=== PATIENT | male | born 2000 | race Two or more races ===

== ENCOUNTER 2024-10-19 17:42 | Inpatient (IN) | payer OTHER ==
[~2024-10-19] VITALS: Ht 162.6 cm; Wt 64.0 kg
[2024-10-19 18:44] LABS: BASOPHILS % (AUTO) 0.5 % (0.0-2.0); EOSINOPHILS % (AUTO) 1.5 % (1.0-6.0); HEMATOCRIT 47.5 % (41-53); HEMOGLOBIN 15.7 g/dL (13.5-17.5); LYMPHOCYTES # (AUTO) 1.7 K/uL (1.0-4.8); LYMPHOCYTES % (AUTO) 25.3 % (22.0-44.0); MEAN CORPUSCULAR HEMOGLOBIN 30.9 pg (26.0-34.0); MEAN CORPUSCULAR VOLUME 94 fL (80-100); MONOCYTES # (AUTO) 0.7 K/uL (0.1-1.0); MONOCYTES % (AUTO) 10.4 % (2.0-9.0); NEUTROPHILS # (AUTO) 4.1 K/uL (1.8-7.7); NEUTROPHILS % (AUTO) 62.3 % (40.0-70.0); PLATELET COUNT (AUTO) 223 K/uL (150-450); RED BLOOD CELL COUNT(AUTO) 5.08 MIL/uL (4.50-5.90); RED CELL DISTRIBUTION WIDTH 13.3 % (11.5-14.5); WHITE BLOOD COUNT (AUTO) 6.5 K/uL (4.5-11.0)
[2024-10-19 18:56] LABS: ANION GAP 7 mmol/L (8-16); B-TYPE NATRIURETIC PEPTIDE 12 pg/mL (0-100); CARBON DIOXIDE 29 mmol/L (22-29); CHLORIDE 104 mmol/L (98-107); CREATININE 1.09 mg/dL (0.60-1.30); GLOMERULAR FILTR. RATE CALC > 60 mL/min (>60); GLUCOSE,RANDOM 94 mg/dL (70-110); SODIUM SERUM 140 mmol/L (136-145); UREA NITROGEN, BLOOD 10 mg/dL (7-18)
[2024-10-19 19:02] LABS: ALANINE AMINOTRANSFERASE 25 U/L (12-78); ALBUMIN 3.9 g/dL (3.4-5.0); ALKALINE PHOSPHATASE 88 U/L (46-116); ASPARTATE AMINOTRANSFERASE 21 U/L (15-37); BILIRUBIN,TOTAL 0.4 mg/dL (0.1-1.0); CREATINE KINASE, TOTAL ONLY 172 U/L (39-308); TOTAL PROTEIN, SERUM 7.9 g/dL (6.4-8.2)
[2024-10-19] MEDS ORDERED: ACETAMINOPHEN 325 MG TABLET PO PRN (20:30)
[2024-10-19] MEDS ORDERED: ONDANSETRON HCL 4 MG/2 ML VIAL IVP PRN (20:30)
[2024-10-19 20:47] LABS: THYROID STIMULATING HORMONE 0.99 uIU/mL (0.36-3.74)
[2024-10-19] MEDS: DOCUSATE SODIUM 100 MG CAPSULE PO SCH (21:00)
[2024-10-19 21:10] LABS: COVID AG,FIA SOURCE NASAL SWAB
[2024-10-19 21:34] LABS: INFLUENZA TYPE A NEGATIVE FOR TYPE A (NEGATIVE); INFLUENZA TYPE B NEGATIVE FOR TYPE B (NEGATIVE); SARS-COV2 (COVID) ANTIGEN,FIA Negative (Negative)
[2024-10-19 22:50] VITALS: BP 120/71; PULSE 48; RESP 18; TEMP 98.5; O2SAT 100
[2024-10-20] VITALS (7 sets, daily range): BP systolic 92–108; BP diastolic 55–67; PULSE 38–54; RESP 18; TEMP 98.4–99.1; O2SAT 97–100
[2024-10-20] MEDS: HEPARIN SODIUM,PORCINE 5,000 UNITS/ML VIAL SQ SCH
[2024-10-21 04:14] VITALS: BP 103/68; PULSE 48; RESP 18; TEMP 97.9; O2SAT 98
[2024-10-21 08:43] VITALS: BP 100/57; PULSE 46; RESP 18; TEMP 98.2; O2SAT 98
[2024-10-21 16:00] VITALS: BP 129/85; PULSE 41; RESP 19; TEMP 98.6; O2SAT 100
[2024-10-21 19:19] VITALS: BP 106/57; PULSE 50; RESP 18; TEMP 98.6; O2SAT 98
[2024-10-22 04:31] VITALS: BP 110/60; PULSE 45; RESP 18; TEMP 98; O2SAT 100
[2024-10-22 11:28] LABS: MTB PCR w/Rif. Resistance-SPUT NOT DETECTED (Not Detectd)
[2024-10-22 15:13] LABS: MTB PCR w/Rif. Resistance-SPUT NOT DETECTED (Not Detectd)
[2024-10-22 20:13] VITALS: BP 104/60; PULSE 48; RESP 18; TEMP 97.7; O2SAT 100
[2024-10-23 04:31] VITALS: BP 96/58; PULSE 42; RESP 16; TEMP 97.6; O2SAT 100
[2024-10-23 20:42] VITALS: BP 101/52; PULSE 42; RESP 18; TEMP 97.7; O2SAT 98
[2024-10-24 01:06] LABS: QUANTIFERON+, Nil Value 0.26 IU/mL; QUANTIFERON+,Mitogen Value >10.00 IU/mL; QUANTIFERON+,TB1 Antigen Value 0.39 IU/mL; QUANTIFERON+,TB2 Antigen Value 0.52 IU/mL; QUANTIFERON, TB GOLD PLUS Negative (Negative)
[2024-10-24 05:35] VITALS: BP 93/54; PULSE 44; RESP 18; TEMP 97.7; O2SAT 99
[2024-10-24 09:05] VITALS: BP 105/50; PULSE 46; RESP 18; TEMP 98.4; O2SAT 100
[2024-10-24 13:45] LABS: FREE T4 (FREE THYROXINE) 0.92 ng/dL (0.76-1.46); THYROID STIMULATING HORMONE 1.92 uIU/mL (0.36-3.74)
[2024-10-24 19:53] VITALS: BP 95/53; PULSE 45; RESP 17; TEMP 98.4; O2SAT 100
[2024-10-25 04:49] VITALS: BP 90/52; PULSE 42; RESP 16; TEMP 97.5; O2SAT 98
[2024-10-25] MEDS ORDERED: MethylPREDNISolone SOD SUCC 125 MG/2 ML VIAL ONE (13:54)
[2024-10-25 16:43] LABS: BASOPHILS % (AUTO) 0.5 % (0.0-2.0); EOSINOPHILS % (AUTO) 1.9 % (1.0-6.0); HEMATOCRIT 47.4 % (41-53); HEMOGLOBIN 15.8 g/dL (13.5-17.5); LYMPHOCYTES # (AUTO) 1.8 K/uL (1.0-4.8); LYMPHOCYTES % (AUTO) 35.8 % (22.0-44.0); MEAN CORPUSCULAR HEMOGLOBIN 30.9 pg (26.0-34.0); MEAN CORPUSCULAR HGB CONC 33.3 G/dL (31.0-37.0); MEAN CORPUSCULAR VOLUME 93 fL (80-100); MONOCYTES # (AUTO) 0.4 K/uL (0.1-1.0); MONOCYTES % (AUTO) 7.9 % (2.0-9.0); NEUTROPHILS # (AUTO) 2.8 K/uL (1.8-7.7); NEUTROPHILS % (AUTO) 53.9 % (40.0-70.0); PLATELET COUNT (AUTO) 246 K/uL (150-450); RED CELL DISTRIBUTION WIDTH 13.1 % (11.5-14.5); WHITE BLOOD COUNT (AUTO) 5.1 K/uL (4.5-11.0)
[2024-10-25 16:52] LABS: ANION GAP 7 mmol/L (8-16); CALCIUM, TOTAL 8.9 mg/dL (8.8-10.5); CARBON DIOXIDE 30 mmol/L (22-29); CHLORIDE 103 mmol/L (98-107); CREATININE 1.29 mg/dL (0.60-1.30); GLOMERULAR FILTR. RATE CALC > 60 mL/min (>60); GLUCOSE,RANDOM 87 mg/dL (70-110); POTASSIUM 4.5 mmol/L (3.5-5.1); SODIUM SERUM 140 mmol/L (136-145); UREA NITROGEN, BLOOD 19 mg/dL (7-18)
[2024-10-25 16:59] LABS: ALANINE AMINOTRANSFERASE 32 U/L (12-78); ALBUMIN 3.5 g/dL (3.4-5.0); ALKALINE PHOSPHATASE 80 U/L (46-116); ASPARTATE AMINOTRANSFERASE 23 U/L (15-37); BILIRUBIN,TOTAL 0.2 mg/dL (0.1-1.0); TOTAL PROTEIN, SERUM 7.4 g/dL (6.4-8.2)
[2024-10-25] MEDS: LEVOFLOXACIN 750 MG TABLET PO ONE (18:19)
[2024-10-25 19:17] VITALS: BP 102/51; PULSE 54; RESP 18; TEMP 98.3; O2SAT 99
[2024-10-26 04:29] VITALS: BP 97/64; PULSE 52; RESP 18; TEMP 97.7; O2SAT 99
[2024-10-26 07:58] VITALS: BP 96/57; PULSE 45; RESP 18; TEMP 98; O2SAT 100
[2024-10-26] MEDS: LEVOFLOXACIN 750 MG TABLET PO SCH (08:54)
[2024-10-26 17:10] VITALS: BP 98/45; PULSE 49; RESP 18; TEMP 98.1; O2SAT 100
[2024-10-26 18:00] VITALS: BP 98/54; PULSE 47; RESP 18; O2SAT 100
[2024-10-26 20:25] VITALS: BP 98/53; PULSE 54; RESP 18; TEMP 98.4; O2SAT 98
[2024-10-26] MEDS: AMOX TR/POT CLAV 875 MG/125 MG TABLET PO SCH (20:47)
[2024-10-26] MEDS ORDERED: ZOLPIDEM TARTRATE 5 MG TABLET PO SCH (22:00)
[2024-10-27 07:38] VITALS: BP 99/58; PULSE 40; RESP 18; TEMP 97.9; O2SAT 100
[2024-10-27 20:11] VITALS: BP 104/59; PULSE 60; RESP 20; TEMP 98.5; O2SAT 100
[2024-10-27] MEDS: ZOLPIDEM TARTRATE 5 MG TABLET PO PRN (21:00)
[2024-10-28 05:12] VITALS: BP 100/61; PULSE 58; RESP 18; TEMP 97.8; O2SAT 100
[2024-10-28 07:53] VITALS: BP 101/62; PULSE 40; RESP 18; TEMP 97.6; O2SAT 99
[2024-10-28 19:50] VITALS: BP 121/69; PULSE 75; RESP 18; TEMP 98.2; O2SAT 98
[2024-10-29 04:36] VITALS: BP 102/67; PULSE 69; RESP 18; TEMP 97.7; O2SAT 98
[2024-10-29 08:52] VITALS: BP 107/63; PULSE 46; RESP 19; TEMP 97.7; O2SAT 100
[2024-10-29 19:33] VITALS: BP 108/68; PULSE 52; RESP 18; TEMP 97.9; O2SAT 100
[2024-10-30 04:50] VITALS: BP 109/69; PULSE 59; RESP 18; TEMP 97.8; O2SAT 99
[2024-10-30 09:15] VITALS: BP 107/72; PULSE 45; RESP 17; TEMP 97.8; O2SAT 99
[2024-10-30 19:20] VITALS: BP 99/51; PULSE 52; RESP 18; TEMP 97.7; O2SAT 96
[2024-10-31 05:05] VITALS: BP 99/52; PULSE 44; RESP 19; TEMP 97.5; O2SAT 97
[2024-10-31 08:00] VITALS: BP 99/54; PULSE 46; RESP 18; TEMP 98.2; O2SAT 98
[2024-10-31 08:34] VITALS: BP 100/57; PULSE 40; RESP 18; TEMP 98.5; O2SAT 99
[2024-10-31 12:00] VITALS: BP 99/54; PULSE 46; RESP 18; TEMP 98.2; O2SAT 98
[2024-10-31 16:00] VITALS: BP 97/68; PULSE 46; RESP 18; TEMP 98.2; O2SAT 98
[2024-11-01 04:17] VITALS: BP 105/53; PULSE 60; RESP 16; TEMP 98.6; O2SAT 98
[2024-11-01 08:00] VITALS: BP 99/64; PULSE 47; RESP 18; TEMP 98.5; O2SAT 99
[2024-11-01 19:43] VITALS: BP 105/68; PULSE 57; RESP 18; TEMP 98.2; O2SAT 98
[2024-11-02 04:38] VITALS: BP 104/63; PULSE 48; RESP 18; TEMP 97.6; O2SAT 99
[2024-11-02 09:08] VITALS: BP 102/55; PULSE 45; RESP 18; TEMP 98.5; O2SAT 100
[2024-11-02 15:06] LABS: HIV 1-2 SCREEN 4TH GEN W/RFLX Preliminary Reactive (Non Reactive); HIV INTERPRETATION Negative; HIV-1 ANTIBODY(MULTISPOT) Non Reactive (Non Reactive); HIV-2 ANTIBODY(MULTISPOT) Non Reactive (Non Reactive)
[2024-11-02 19:25] VITALS: BP 99/59; PULSE 50; RESP 18; TEMP 98.3; O2SAT 100
[2024-11-03 04:08] VITALS: BP 95/57; PULSE 48; RESP 18; TEMP 97.5; O2SAT 97
[2024-11-03 07:18] VITALS: BP 97/69; PULSE 48; RESP 19; TEMP 97.8; O2SAT 99
[2024-11-03 16:48] VITALS: BP 100/51; PULSE 42; RESP 18; TEMP 97.7; O2SAT 100
[2024-11-03 19:27] VITALS: BP 102/56; PULSE 60; RESP 18; TEMP 98.4; O2SAT 100
[2024-11-04 05:05] VITALS: BP 96/56; PULSE 56; RESP 18; TEMP 97.4; O2SAT 99
[2024-11-04 08:04] VITALS: BP 100/57; PULSE 55; RESP 19; TEMP 97.7; O2SAT 99
[2024-11-04 16:04] LABS: ALBUMIN 3.6 g/dL (3.4-5.0); BILIRUBIN,DIRECT 0.1 mg/dL (0.00-0.20); BILIRUBIN,TOTAL 0.3 mg/dL (0.1-1.0); TOTAL PROTEIN, SERUM 7.2 g/dL (6.4-8.2)
[2024-11-04] MEDS: PYRAZINAMIDE 500 MG TABLET PO SCH (16:27)
[2024-11-04] MEDS: ETHAMBUTOL HCL 400 MG TABLET PO SCH (16:28)
[2024-11-04] MEDS: RIFAMPIN 300 MG CAPSULE PO SCH (16:28)
[2024-11-04] MEDS: ISONIAZID 300 MG TABLET PO SCH (16:28)
[2024-11-04] MEDS: PYRIDOXINE HCL 50 MG TABLET PO SCH (16:28)
[2024-11-04 19:31] VITALS: BP 96/56; PULSE 63; RESP 19; TEMP 98.5; O2SAT 98
[2024-11-05 04:08] VITALS: BP 96/63; PULSE 41; RESP 19; TEMP 97.5; O2SAT 97
[2024-11-05 07:54] VITALS: BP 105/70; PULSE 58; RESP 18; TEMP 98; O2SAT 98
[2024-11-05] MEDS ORDERED: OLAN5TAB52 PO (10:58)
[2024-11-05] MEDS ORDERED: CITA-144 PO (10:58)
[2024-11-05 20:29] VITALS: BP 113/57; PULSE 60; RESP 18; TEMP 98.4; O2SAT 98
[2024-11-06 04:46] VITALS: BP 99/50; PULSE 55; RESP 18; TEMP 97.7; O2SAT 99
[2024-11-06 07:28] VITALS: BP 98/53; PULSE 57; RESP 18; TEMP 98; O2SAT 100
[2024-11-06 20:00] VITALS: BP 94/56; PULSE 52; RESP 18; TEMP 97.4; O2SAT 99
[2024-11-07 04:06] VITALS: BP 99/64; PULSE 60; RESP 18; TEMP 97.7; O2SAT 99
[2024-11-07 07:56] LABS: ALANINE AMINOTRANSFERASE 42 U/L (12-78); ALBUMIN 3.5 g/dL (3.4-5.0); ALKALINE PHOSPHATASE 72 U/L (46-116); ANION GAP 10 mmol/L (8-16); ASPARTATE AMINOTRANSFERASE 26 U/L (15-37); BILIRUBIN,TOTAL 0.5 mg/dL (0.1-1.0); CALCIUM, TOTAL 8.6 mg/dL (8.8-10.5); CARBON DIOXIDE 25 mmol/L (22-29); CHLORIDE 104 mmol/L (98-107); CREATININE 0.94 mg/dL (0.60-1.30); GLOMERULAR FILTR. RATE CALC > 60 mL/min (>60); GLUCOSE,RANDOM 76 mg/dL (70-110); POTASSIUM 3.7 mmol/L (3.5-5.1); SODIUM SERUM 139 mmol/L (136-145); UREA NITROGEN, BLOOD 12 mg/dL (7-18)
[2024-11-07 08:35] VITALS: BP 115/66; PULSE 62; RESP 18; TEMP 97.5; O2SAT 95
[2024-11-07] MEDS: ALPRAZolam 1 MG TABLET PO PRN (13:38)
[2024-11-07 19:15] VITALS: BP 103/68; PULSE 60; RESP 18; TEMP 98.2; O2SAT 99
[2024-11-08 04:01] VITALS: BP 102/53; PULSE 60; RESP 18; TEMP 98.1; O2SAT 99
[2024-11-08 08:24] VITALS: BP 101/69; PULSE 66; RESP 18; TEMP 97.5; O2SAT 100
[2024-11-08 19:21] VITALS: BP 107/59; PULSE 59; RESP 18; TEMP 97.5; O2SAT 97
[2024-11-09 05:11] VITALS: BP 98/75; PULSE 68; RESP 18; TEMP 97.5; O2SAT 98
[2024-11-09 08:00] VITALS: BP 100/67; PULSE 77; RESP 18; TEMP 97.6; O2SAT 97
[2024-11-09 11:58] LABS: ALANINE AMINOTRANSFERASE 30 U/L (12-78); ALBUMIN 3.5 g/dL (3.4-5.0); ALKALINE PHOSPHATASE 73 U/L (46-116); ANION GAP 8 mmol/L (8-16); ASPARTATE AMINOTRANSFERASE 17 U/L (15-37); BILIRUBIN,TOTAL 0.6 mg/dL (0.1-1.0); CALCIUM, TOTAL 8.6 mg/dL (8.8-10.5); CARBON DIOXIDE 29 mmol/L (22-29); CHLORIDE 104 mmol/L (98-107); CREATININE 0.78 mg/dL (0.60-1.30); GLOMERULAR FILTR. RATE CALC > 60 mL/min (>60); GLUCOSE,RANDOM 102 mg/dL (70-110); POTASSIUM 3.9 mmol/L (3.5-5.1); SODIUM SERUM 141 mmol/L (136-145); UREA NITROGEN, BLOOD 13 mg/dL (7-18)
[2024-11-09 19:31] VITALS: BP 104/69; PULSE 70; RESP 18; TEMP 98.2; O2SAT 99
[2024-11-10 05:49] VITALS: BP 93/57; PULSE 67; RESP 18; TEMP 97.8; O2SAT 100
[2024-11-10 07:30] VITALS: BP 105/54; PULSE 80; RESP 18; TEMP 97.7; O2SAT 97
[2024-11-10 16:13] VITALS: BP 101/74; PULSE 65; RESP 18; TEMP 98.1; O2SAT 98
[2024-11-10 19:20] VITALS: BP 100/60; PULSE 60; RESP 18; TEMP 98; O2SAT 99
[2024-11-11 04:15] VITALS: BP 106/69; PULSE 59; RESP 18; TEMP 97.7; O2SAT 98
[2024-11-11 07:35] VITALS: BP 118/68; PULSE 54; RESP 18; TEMP 97.5; O2SAT 98
[2024-11-11 20:22] VITALS: BP 97/52; PULSE 51; RESP 18; TEMP 97.5; O2SAT 100
[2024-11-12 05:08] VITALS: BP 98/68; PULSE 52; RESP 18; TEMP 97.6; O2SAT 98
[2024-11-12 08:00] VITALS: BP 100/66; PULSE 56; RESP 15; TEMP 97.8; O2SAT 98
[2024-11-12 19:36] VITALS: BP 104/67; PULSE 58; RESP 18; TEMP 98.2; O2SAT 99
[2024-11-13 04:48] VITALS: BP 108/57; PULSE 68; RESP 18; TEMP 97.5; O2SAT 96
[2024-11-13 19:18] VITALS: BP 93/56; PULSE 55; RESP 18; TEMP 98; O2SAT 98
[2024-11-14 04:22] VITALS: BP 85/48; PULSE 45; RESP 18; TEMP 97.5; O2SAT 99
[2024-11-14 07:30] VITALS: BP 122/70; PULSE 44; RESP 19; TEMP 97.5; O2SAT 98
[2024-11-14 19:57] VITALS: BP 111/65; PULSE 64; RESP 18; TEMP 98.2; O2SAT 97
[2024-11-15 04:58] VITALS: BP 119/61; PULSE 61; RESP 18; TEMP 98; O2SAT 98
[2024-11-15 08:06] VITALS: BP 101/55; PULSE 68; RESP 18; TEMP 98.2; O2SAT 98
[2024-11-15 20:31] VITALS: BP 103/72; PULSE 56; RESP 18; TEMP 98.2; O2SAT 97
[2024-11-16 05:41] VITALS: BP 101/51; PULSE 61; RESP 18; TEMP 97.8; O2SAT 96
[2024-11-16 15:51] VITALS: BP 105/67; PULSE 57; RESP 18; TEMP 98.3; O2SAT 100
[2024-11-16 21:14] VITALS: BP 122/71; PULSE 62; RESP 18; TEMP 97.9; O2SAT 100
[2024-11-17 04:55] VITALS: BP 103/61; PULSE 46; RESP 18; TEMP 98; O2SAT 98
[2024-11-17 08:04] VITALS: BP 105/71; PULSE 61; RESP 18; TEMP 97.9; O2SAT 100
[2024-11-17 16:36] VITALS: BP 101/46; PULSE 54; RESP 18; TEMP 98.5; O2SAT 99
[2024-11-17 19:25] VITALS: BP 114/71; PULSE 58; RESP 18; TEMP 97.8; O2SAT 98
[2024-11-18 04:30] VITALS: BP 109/74; PULSE 64; RESP 18; TEMP 98; O2SAT 98
[2024-11-18 08:11] VITALS: BP 100/54; PULSE 60; RESP 18; TEMP 98.1; O2SAT 98
[2024-11-18 11:35] LABS: BASOPHILS % (AUTO) 1.2 % (0.0-2.0); EOSINOPHILS % (AUTO) 3.9 % (1.0-6.0); HEMATOCRIT 44.3 % (41-53); HEMOGLOBIN 15.4 g/dL (13.5-17.5); LYMPHOCYTES # (AUTO) 1.6 K/uL (1.0-4.8); LYMPHOCYTES % (AUTO) 34.9 % (22.0-44.0); MEAN CORPUSCULAR HEMOGLOBIN 31.3 pg (26.0-34.0); MEAN CORPUSCULAR HGB CONC 34.7 G/dL (31.0-37.0); MEAN CORPUSCULAR VOLUME 90 fL (80-100); MONOCYTES # (AUTO) 0.6 K/uL (0.1-1.0); MONOCYTES % (AUTO) 11.9 % (2.0-9.0); NEUTROPHILS # (AUTO) 2.2 K/uL (1.8-7.7); NEUTROPHILS % (AUTO) 48.1 % (40.0-70.0); PLATELET COUNT (AUTO) 207 K/uL (150-450); RED BLOOD CELL COUNT(AUTO) 4.91 MIL/uL (4.50-5.90); RED CELL DISTRIBUTION WIDTH 12.9 % (11.5-14.5); WHITE BLOOD COUNT (AUTO) 4.6 K/uL (4.5-11.0)
[2024-11-18 11:52] LABS: ALANINE AMINOTRANSFERASE 26 U/L (12-78); ALBUMIN 3.6 g/dL (3.4-5.0); ALKALINE PHOSPHATASE 66 U/L (46-116); ANION GAP 6 mmol/L (8-16); ASPARTATE AMINOTRANSFERASE 16 U/L (15-37); BILIRUBIN,TOTAL 0.7 mg/dL (0.1-1.0); CALCIUM, TOTAL 8.7 mg/dL (8.8-10.5); CARBON DIOXIDE 29 mmol/L (22-29); CHLORIDE 104 mmol/L (98-107); CREATININE 0.77 mg/dL (0.60-1.30); GLOMERULAR FILTR. RATE CALC > 60 mL/min (>60); GLUCOSE,RANDOM 96 mg/dL (70-110); POTASSIUM 3.8 mmol/L (3.5-5.1); SODIUM SERUM 139 mmol/L (136-145); TOTAL PROTEIN, SERUM 7.1 g/dL (6.4-8.2); UREA NITROGEN, BLOOD 13 mg/dL (7-18)
[2024-11-18 20:22] VITALS: BP 98/58; PULSE 63; RESP 18; TEMP 98.5; O2SAT 96
[2024-11-19 05:25] VITALS: BP 99/60; PULSE 61; RESP 18; TEMP 97.8; O2SAT 96
[2024-11-19 08:17] VITALS: BP 96/65; PULSE 58; RESP 18; TEMP 97.8; O2SAT 98
[2024-11-19] MEDS ORDERED: ACET-2247 PO (12:55)
[2024-11-19] MEDS ORDERED: ETHA400T25 PO (12:56)
[2024-11-19] MEDS ORDERED: ISON300T90 PO (12:57)
[2024-11-19] MEDS ORDERED: PYRA500T33 PO (12:58)
[2024-11-19] MEDS ORDERED: PYRI-9 PO (12:58)
[2024-11-19] MEDS ORDERED: RIFA300C63 PO (12:59)
== END 2024-11-19 21:05 | DRG 178 ==
LOC: EMS 17:42 → EDH 20:17 → 6N 22:17 → AHU 10-22 15:26 → 6N 10-22 15:34
PROVIDERS: ADMIT Internal Medicine; ATTEND Internal Medicine
PROC: GZ58ZZZ Individual Psychotherapy, Cognitive-Behavioral (ICD-10-PCS; principal; 2024-10-19)
PROC: GZ56ZZZ Individual Psychotherapy, Supportive (ICD-10-PCS; 2024-10-19)
DX: A15.0 Tuberculosis of lung (principal); F33.0 Major depressive disorder, recurrent, mild; J18.9 Pneumonia, unspecified organism; Z20.822 Contact with and (suspected) exposure to COVID-19; I10 Essential (primary) hypertension; F43.21 Adjustment disorder with depressed mood; R00.1 Bradycardia, unspecified; Z79.899 Other long term (current) drug therapy
CPT/HCPCS: 71045; 71250; 80048; 80053; 80076; 82550; 83880; 84439; 84443; 85025; 86480; 87015; 87081; 87150; 87186; 87206; 87389; 87536; 87556; 87804; 93005; 94640; 99285; J1644; J2919; 36415-L1; 36415-TC